=== PATIENT | male | born 1960 | race Caucasian/White ===

== ENCOUNTER 2016-05-21 22:09 | Emergency (ER) | payer MEDICAID ==
[2016-05-21 22:20] VITALS: TEMP 97.6
[2016-05-21] MEDS ORDERED: diphenhydrAMINE 50 MG/ML 1 ML VIAL IVP STA (23:16)
[2016-05-21] MEDS ORDERED: predniSONE 20 MG TAB PO STA (23:17)
[2016-05-21] MEDS ORDERED: FAMOTIDINE 20 MG/2 ML VIAL IV STA (23:17)
[2016-05-21 23:19] LABS: Basophils % (A) 0 %; CH 32.2; Eosinophils # (A) 0.2 k/uL (0-0.7); Eosinophils % (A) 3 %; HDW 2.68; HGB 15.9 gm/dL (13.0-17.5); Luc # (Auto) 0.17; Luc % (Auto) 2; Lymphocytes # (A) 2.4 k/uL (1.0-4.8); Lymphocytes % (A) 31 %; MCHC 34.6 g/dL (31.0-37.0); MCV 92.3 fL (80.0-100.0); Mean Platelet Volume 6.5; Monocytes # (A) 0.4 k/uL (0-1.0); Monocytes % (A) 5 %; Neutrophils # (A) 4.7 k/uL (1.3-7.7); Neutrophils % (A) 59 %; RBC 4.98 m/uL (4.30-5.90); RDW 12.9 % (11.5-15.5); WBC 7.9 k/uL (3.8-10.6); WBC (Perox) 7.73
--- NOTE | 2016-05-21 23:26 | ED ---
Chest Pain HPI - General Chief Complaint: Chest Pain Stated Complaint: chest pains and Hives Time Seen by Provider: 05/21/16 22:36 Source: patient, family Mode of arrival: wheelchair Limitations: no limitations - History of Present Illness Initial Comments: This patient is a 55-year-old man who presents with what he is complaining as chest pain. He indicates the epigastric area and states that it feels most like a cramping and that it goes down towards his umbilicus, and then seems to come back up. He states that he started experiencing this on Sunday and that is worse today. He told his about it tonight she had him come here to be seen. In addition, patient is having some swelling of his lips and tongue tonight. He does have history of environmental ALLERGIES and they did recently acquired cat but he does not believe is related. Patient denies diaphoresis, dyspnea, nausea and vomiting, palpitations or lightheadedness. MD Complaint: chest pain -: days(s) Onset: during rest Pain Location: epigastric Pain Radiation: abdomen Severity: moderate Quality: other (Cramping) Consistency: intermittent Improves With: nothing Worsens With: nothing Treatments Prior to Arrival: none - Related Data Previous Rx's Medication Instructions Recorded predniSONE 60 mg PO DAILY #30 tab 05/22/16 Allergies Allergy/AdvReac Type Severity Reaction Status Date / Time No Known Allergies Allergy Verified 05/21/16 22:19 Review of Systems ROS Statement: Those systems with pertinent positive or pertinent negative responses have been documented in the HPI. ROS Other: All systems not noted in ROS Statement are negative. Constitutional: Denies: fever, chills ENT: Reports: as per HPI, other (Swelling of lips and tongue) Respiratory: Denies: cough, dyspnea Cardiovascular: Reports: chest pain. Denies: palpitations, orthopnea, edema, syncope Gastrointestinal: Denies: abdominal pain, nausea, vomiting, diarrhea, melena, hematochezia Genitourinary: Denies: dysuria, hematuria Musculoskeletal: Denies: back pain Skin: Denies: rash Neurological: Denies: headache, weakness, numbness EKG Findings - EKG Comments: EKG Findings:: QRS duration is 120 ms with a nonspecific intraventricular conduction delay. Other intervals normal - EKG Results: EKG: interpreted by OLU, sinus rhythm (Rate 72 bpm), normal axis, normal ST/T Past Medical History Additional Past Medical History / Comment(s): insomnia History of Any Multi-Drug Resistant Organisms: None Reported Past Surgical History: Orthopedic Surgery Past Psychological History: Anxiety Smoking Status: Never smoker Past Alcohol Use History: None Reported Past Drug Use History: None Reported General Exam Limitations: no limitations General appearance: alert, in no apparent distress Head exam: Present: atraumatic, normocephalic ENT exam: Present: mucous membranes moist, other (There is symmetric angioedema of the tongue, moderate degree, and mild symmetric angioedema of the lips) Neck exam: Present: normal inspection, full ROM Respiratory exam: Present: normal lung sounds bilaterally. Absent: respiratory distress, wheezes, rales, rhonchi, stridor Cardiovascular Exam: Present: regular rate, normal rhythm, systolic murmur ( Grade 2/6 systolic ejection murmur). Absent: diastolic murmur, rubs, gallop GI/Abdominal exam: Present: soft. Absent: distended, tenderness, guarding, rebound, rigid, mass, pulsatile mass, hernia Extremities exam: Present: normal inspection, normal capillary refill. Absent: pedal edema, calf tenderness Back exam: Present: normal inspection. Absent: CVA tenderness (R), CVA tenderness (L) Neurological exam: Present: alert Skin exam: Present: warm, dry, intact, normal color. Absent: rash Course Vital Signs 05/21/16 05/21/16 05/22/16 22:13 22:44 01:10 Temperature 97.6 F Pulse Rate 75 72 70 Respiratory 18 18 16 Rate Blood Pressure 139/83 143/88 125/73 O2 Sat by Pulse 97 96 97 Oximetry Chest Pain MDM - MDM This patient's 55-year-old man presenting with epigastric pain that is atypical for cardiac pain, however given his age and no previous cardiac workup, did offer admission. The patient does decline that but will follow-up to have a stress test. Discussed appropriate return parameters, In relation to the angioedema, the patient has had some relief of the symptoms. We discussed appropriate follow-up and return parameters there. There may be a history of hereditary component and patient urged to follow up regarding this. Disposition Clinical Impression: Chest pain, Angioedema Disposition: HOME SELF-CARE Condition: Good Instructions: Chest Pain (ED) Additional Instructions: As we discussed, follow-up with the radar scientist about having a stress test. If the symptoms recur or if any new symptoms develop return immediately, we can facilitate the stress test through admission. Prescriptions: predniSONE 60 mg PO DAILY #30 tab Referrals: Virgilio Baltazar MD [Primary Care Provider] - 1-2 days
[2016-05-21 23:27] LABS: ALT 32 U/L (21-72); AST 26 U/L (17-59); Alkaline Phosphatase 83 U/L (38-126); Anion Gap 13 mmol/L; Blood Urea Nitrogen 10 mg/dL (9-20); Calcium 9.1 mg/dL (8.4-10.2); Carbon Dioxide 25 mmol/L (22-30); Chloride 102 mmol/L (98-107); Glucose 97 mg/dL (74-99); Non-African American GFR(MDRD) >60 (>60 ml/min/1.73 sqM); Potassium 3.6 mmol/L (3.5-5.1); Sodium 140 mmol/L (137-145); Total Bilirubin 0.5 mg/dL (0.2-1.3); Total Protein 7.2 g/dL (6.3-8.2)
[2016-05-21 23:36] LABS: Creatine Kinase 138 U/L (55-170)
[2016-05-21 23:44] LABS: Magnesium 2.2 mg/dL (1.6-2.3)
--- NOTE | 2016-05-21 23:48 | XR ---
EXAM: XR Chest, 1 View. CLINICAL HISTORY: Reason: chest pain TECHNIQUE: Frontal view of the chest. COMPARISON: No relevant prior studies available. FINDINGS: Lungs: Unremarkable. No consolidation. Pleural space: Unremarkable. No pneumothorax. Heart: Unremarkable. No cardiomegaly. Mediastinum: Unremarkable. Bones/joints: No acute osseous abnormality. IMPRESSION: No acute cardiopulmonary process.
[2016-05-21 23:49] LABS: Creatine Kinase MB 1.5 ng/mL (0.0-2.4); Troponin I <0.012 ng/mL (0.000-0.034)
[2016-05-22 01:11] VITALS: BP 125/73; PULSE 70; RESP 16
== END 2016-05-22 01:10 | disposition home or self-care (01) ==
LOC: EC 22:09
DX: T78.3XXA Angioneurotic edema, initial encounter (principal); R07.89 Other chest pain
CPT/HCPCS: 99285; 96374; 96375; 36415; 93005; 80053; 82150; 82550; 82553; 83690; 83735; 84484; 85025; 71010; J1200; J7512

== ENCOUNTER → 2016-06-13 | Outpatient (CLI) | payer MEDICAID ==
[2016-06-13 10:16] LABS: EKG EKG PERFORMED
[2016-06-13 10:24] LABS: HCT 46.2 % (39.0-53.0); HDW 2.67; HGB 15.4 gm/dL (13.0-17.5); MCH 31.5 pg (25.0-35.0); MCHC 33.3 g/dL (31.0-37.0); MCV 94.7 fL (80.0-100.0); Mean Platelet Volume 6.3; RBC 4.88 m/uL (4.30-5.90); RDW 13.1 % (11.5-15.5); WBC 4.8 k/uL (3.8-10.6)
[2016-06-13 10:36] LABS: Prothrombin Time 10.2 sec (9.0-12.0)
[2016-06-13 10:40] LABS: ALT 27 U/L (21-72); AST 22 U/L (17-59); Alkaline Phosphatase 90 U/L (38-126); Blood Urea Nitrogen 7 mg/dL (9-20); Calcium 9.4 mg/dL (8.4-10.2); Carbon Dioxide 30 mmol/L (22-30); Chloride 103 mmol/L (98-107); Glucose 150 mg/dL (74-99); Non-African American GFR(MDRD) >60 (>60 ml/min/1.73 sqM); Potassium 4.1 mmol/L (3.5-5.1); Total Bilirubin 0.7 mg/dL (0.2-1.3); Total Protein 7.8 g/dL (6.3-8.2)
[2016-06-13 10:54] LABS: Appearance,Urine Cloudy (Clear); Bilirubin,Urine Negative (Negative); Glucose,Urine (UA) Negative (Negative); Ketones,Urine Negative (Negative); Leukocyte Esterase,Urine Negative (Negative); Mucus,Urine Rare /hpf; Nitrite,Urine Negative (Negative); PH, Urine 5.5 (5.0-8.0); Particle Count 821; Protein,Urine Negative (Negative); Specific Gravity,Urine 1.005 (1.001-1.035); UA Billing (MACRO vs. MICRO) MICRO; Urobilinogen,Urine <2.0 mg/dL (<2.0); WBC,Urine 3 /hpf (0-5)
[2016-06-13 10:55] LABS: Anion Gap 11 mmol/L; Sodium 144 mmol/L (137-145)
== END | disposition home or self-care (01) ==
LOC: LABPAT 10:05
PROVIDERS: ATTEND Orthopaedic Surgery Sports Medicine
DX: Z01.812 Encounter for preprocedural laboratory examination (principal)
CPT/HCPCS: 80053; 81001; 85027; 85610; 85730; 87070; 93005

== ENCOUNTER → 2016-06-16 | Outpatient (CLI) | payer MEDICAID ==
--- NOTE | 2016-06-16 17:36 | CT ---
EXAMINATION TYPE: CT angio chest DATE OF EXAM: 06/16/2016 5:24 PM COMPARISON: NONE HISTORY: Pre surgical scan. Chest pain. History of heart murmur. Son of hypertrophic cardiomyopa thy. CT DLP: 628.20 mGycm Automated exposure control for dose reduction was used. CONTRAST: CTA scan of the thorax is performed without and with IV Contrast, patient injected with 100 mL of Omn ipaque 350, pulmonary embolism protocol. There are 3-D post processed images.. FINDINGS: The lungs are clear of infiltrate. There is no evidence of a pulmonary mass. There is mild subsegment al atelectasis or scarring in the right middle lobe. There is no pleural effusion. There is normal contrast opacification of the pulmonary arteries. There are no filling defects. There is no evidence of aortic aneurysm or dissection. Heart size is normal. There is no pericardial effus ion. There are no hilar masses. There is no mediastinal adenopathy. The bony thorax is intact. There are old mild compression fractures of T4 and T3 with less than 10% loss of height. IMPRESSION: NO EVIDENCE OF PULMONARY EMBOLISM. OLD MINIMAL THORACIC COMPRESSION FRACTURES. MINIMAL RIGHT MIDDLE L OBE SCARRING AND SUBSEGMENTAL ATELECTASIS.
== END | disposition home or self-care (01) ==
LOC: RADCTMAIN 16:40
PROVIDERS: ATTEND Internal Medicine Interventional Cardiology
DX: J98.11 Atelectasis (principal); R91.8 Other nonspecific abnormal finding of lung field; Z87.81 Personal history of (healed) traumatic fracture
CPT/HCPCS: 71275; Q9967

== ENCOUNTER → 2016-06-23 | Outpatient (CLI) | payer MEDICAID ==
[~2016-06-23] MED LIST: REGADENOSON 0.4 MG/5 ML SYRINGE IV ONE
--- NOTE | 2016-06-23 10:23 | ECHOF ---
Referral Reason:I35.8 Aortic valve disorder MEASUREMENTS -------- HEIGHT: 177.8 cm WEIGHT: 72.6 kg BP: 127/77 RVIDd: 3.2 cm (< 3.3) IVSd: 0.9 cm (0.6 - 1.1) LVIDd: 5.3 cm (3.9 - 5.3) LVPWd: 0.9 cm (0.6 - 1.1) IVSs: 1.8 cm LVIDs: 3.3 cm LVPWs: 1.5 cm LAESV Index (A-L): 13.68 ml/m Ao Diam: 3.9 cm (2.0 - 3.7) AV Cusp: 1.6 cm (1.5 - 2.6) LA Diam: 2.7 cm (2.7 - 3.8) MV EXCURSION: 15.618 mm (> 18.000) MV EF SLOPE: 131 mm/s (70 - 150) EPSS: 1.0 cm MV E Rodney: 0.66 m/s MV DecT: 329 ms MV A Rodney: 0.71 m/s MV E/A Ratio: 0.93 AR PHT: 584 ms FINDINGS -------- Sinus rhythm. This was a technically adequate study. Left ventricular wall thickness is normal. Overall left ventricular systolic function is normal with, an EF between 60 - 65 %. The right ventricle is normal in size and function. Normal LA size by volume 22+/-6 ml/m2. The right atrium is normal in size. Aortic valve is trileaflet and is mildly thickened. There is mild aortic regurgitation. There is no evidence of aortic stenosis. The mitral valve leaflets are mildly thickened. There is trace to mild mitral regurgitation. Trace tricuspid regurgitation present. There is no evidence of pulmonary hypertension. The right ventricular systolic pressure, as measured by Doppler, is {RVSP}. Trace/mild (physiologic) pulmonic regurgitation. The aortic root is mildy dilated. There is no pericardial effusion. CONCLUSIONS -------- 1. Sinus rhythm. 2. The right ventricular systolic pressure, as measured by Doppler, is {RVSP}. 3. Trace/mild (physiologic) pulmonic regurgitation. 4. The aortic root is mildy dilated. 5. There is no pericardial effusion. 6. Overall left ventricular systolic function is normal with, an EF between 60 - 65 %. 7. Normal LA size by volume 22+/-6 ml/m2. 8. Aortic valve is trileaflet and is mildly thickened. 9. There is mild aortic regurgitation. 10. The mitral valve leaflets are mildly thickened. 11. There is trace to mild mitral regurgitation. 12. Trace tricuspid regurgitation present. 13. There is no evidence of pulmonary hypertension. PHYSICIAN OFFICE ASSISTANT: Rod Thomas RDCS
--- NOTE | 2016-06-23 11:10 | EST ---
DATE OF SERVICE: 06/23/2016 AGE: 55Y SEX: M HT: 70" WT: 160 lbs. Protocol Isaías: Other: Lexiscan Cardiolite Stage: Dur. of Exercise: *Heart Rate Blood Pressure *Rest: 64 Rest: 120/70 * *Max. Achieved: 87 Maximum BP: 128/84 85% PMHR: 139 100% PMHR: 163 *METS: INDICATIONS: Aortic valve disorder. MEDICATIONS: Fish oil, baby aspirin, multivitamin. Mr. Chaudhry is a 55-year-old gentleman being evaluated for cardiac status. Patient is a scheduled to have a knee operation and also has history of aortic valve disorder. Baseline EKG showed sinus rhythm with normal ME interval and QRS duration. Blood pressure at rest is 120/70 with a pulse rate of 64. A standard dose of Lexiscan was infused. EKGs taken during and after infusion did not reveal any significant changes from the baseline. FINAL IMPRESSION: 1. Negative Lexiscan stress test. 2. Report on the nuclear images to be given by the radiologist.
--- NOTE | 2016-06-23 12:33 | NM ---
EXAMINATION TYPE: NM stress lexiscan cardiolite DATE OF EXAM: 06/23/2016 12:01 PM COMPARISON: NONE HISTORY: Chest pain TECHNIQUE: After the intravenous administration of 9.67 mCi Tc 99m Sestamibi - Cardiolite resting SP ECT images acquired 45 minutes post injection. The patient received 0.4mg Lexiscan, 25.5 mCi Tc 99m Sestamibi - Stress images obtained [address] injection FINDINGS: Review of stress and rest SPECT images demonstrates no distinct perfusion abnormality. Gated analysi s shows normal wall motion with an estimated left ventricular ejection fraction of 50 %. IMPRESSION: No scintigraphic evidence for reversible ischemia.
== END ==
LOC: RADNMMAIN 08:52
PROVIDERS: ATTEND Internal Medicine Interventional Cardiology
DX: I35.8 Other nonrheumatic aortic valve disorders (principal)
CPT/HCPCS: 93017; 93306; 78452; A9500; J2785

== ENCOUNTER → 2016-08-28 | Outpatient (CLI) | payer MEDICAID ==
[2016-08-28 11:20] LABS: CH 31.5; CHCM 33.7; HCT 43.5 % (39.0-53.0); HDW 2.67; HGB 14.5 gm/dL (13.0-17.5); MCH 31.4 pg (25.0-35.0); MCHC 33.3 g/dL (31.0-37.0); MCV 94.1 fL (80.0-100.0); RBC 4.62 m/uL (4.30-5.90); RDW 13.8 % (11.5-15.5); WBC 5.5 k/uL (3.8-10.6)
[2016-08-28 11:27] LABS: Appearance,Urine Clear (Clear); Bilirubin,Urine Negative (Negative); Glucose,Urine (UA) Negative (Negative); Ketones,Urine Negative (Negative); Leukocyte Esterase,Urine Negative (Negative); Nitrite,Urine Negative (Negative); PH, Urine 6.5 (5.0-8.0); Protein,Urine Negative (Negative); Specific Gravity,Urine 1.002 (1.001-1.035); UA Billing (MACRO vs. MICRO) CHEM; Urobilinogen,Urine <2.0 mg/dL (<2.0)
[2016-08-28 11:32] LABS: Partial Thromboplastin Time 25.1 sec (22.0-30.0)
[2016-08-28 11:40] LABS: ALT 40 U/L (21-72); AST 31 U/L (17-59); Alkaline Phosphatase 89 U/L (38-126); Anion Gap 9 mmol/L; Blood Urea Nitrogen 4 mg/dL (9-20); Calcium 9.2 mg/dL (8.4-10.2); Carbon Dioxide 31 mmol/L (22-30); Chloride 103 mmol/L (98-107); Glucose 89 mg/dL (74-99); Non-African American GFR(MDRD) >60 (>60 ml/min/1.73 sqM); Potassium 3.9 mmol/L (3.5-5.1); Sodium 143 mmol/L (137-145); Total Bilirubin 0.4 mg/dL (0.2-1.3); Total Protein 7.3 g/dL (6.3-8.2)
== END | disposition home or self-care (01) ==
LOC: LABPAT 10:54
PROVIDERS: ATTEND Orthopaedic Surgery Sports Medicine
DX: Z01.810 Encounter for preprocedural cardiovascular examination (principal); Z01.812 Encounter for preprocedural laboratory examination; M17.11 Unilateral primary osteoarthritis, right knee
CPT/HCPCS: 80053; 81003; 85027; 85610; 85730; 87070

== ENCOUNTER 2016-09-07 10:14 | Inpatient (IN) | payer MEDICAID ==
[2016-08-30 14:51] VITALS: BMI 22.9
[~2016-09-07 10:14] MED LIST changes: +ACETAMINOPHEN TAB 500 MG TAB PO ONE; +DEXAMETHASONE SOD PHOSPHATE 10 MG/ML 1 ML VIAL IV ONE; +HYDROmorphone 1 MG/ML 1 ML SYRINGE IVP PRN; +LACTATED RINGERS 1,000 ML IV SCH; +LIDOCAINE 1% 20 ML VIAL (10MG/ML) FOR IV START INTRADERMA PRN; +MELOXICAM 7.5 MG TAB PO ONE; +MIDAZOLAM 2 MG/2 ML VIAL IV PRN; +ONDANSETRON 4 MG/2 ML VIAL IVP ONE; -REGADENOSON 0.4 MG/5 ML SYRINGE IV ONE; +ROPIVACAINE 246.25 MG, EPINEPHrine 0.5 MG, KETOROLAC 30 MG, cloNIDine HCL/PF 80 MCG, WA... MISCELLANE ONE; +SCOPOLAMINE 1.5MG/72HR PATCH TRANSDERM ONE; +TRANEXAMIC ACID 1,000 MG in SODIUM CHLORIDE 0.9% 100 ML IVPB ONE; +ceFAZolin 2 GM in SODIUM CHLORIDE 0.9% 100 ML IVPB ONE
[2016-09-07] MEDS ORDERED: MIDAZOLAM 2 MG/2 ML VIAL ONE (11:45)
[2016-09-07] MEDS ORDERED: ceFAZolin 3,000 MG in SODIUM CHLORIDE 0.9% IRRIGATIO 3,000 ML IRRIGATION ONE (11:45)
[2016-09-07] MEDS ORDERED: PROPOFOL 10 MG/ML 20 ML VIAL IV ONE (11:45)
[2016-09-07] MEDS ORDERED: fentaNYL (PF) 50 MCG/ML 2 ML AMP ONE (11:45)
[2016-09-07] MEDS ORDERED: MORPHINE SULFATE (PF) 0.3 MG/0.3 ML SYR ONE (11:45)
[2016-09-07] MEDS ORDERED: LACTATED RINGERS 1,000 ML IV ONE (12:25)
[2016-09-07] MEDS ORDERED: DIAZEPAM 5 MG TAB PO PRN (14:15)
[2016-09-07] MEDS ORDERED: NALOXONE 0.4 MG/ML 1 ML VIAL IV PRN (14:15)
[2016-09-07] MEDS ORDERED: ONDANSETRON 4 MG/2 ML VIAL IVP PRN ×2 (14:15→15:15)
[2016-09-07] MEDS ORDERED: traMADol 50 MG TAB PO PRN (14:15)
[2016-09-07] MEDS ORDERED: MAGNESIUM HYDROXIDE 2,400 MG/10 ML CUP PO PRN (14:15)
[2016-09-07] MEDS ORDERED: NA PHOS,M-B/NA PHOS,DI-BA 133 ML ENEMA RECTAL PRN (14:15)
[2016-09-07] MEDS ORDERED: ACETAMINOPHEN TAB 325 MG TAB PO PRN (14:15)
[2016-09-07] MEDS ORDERED: BISACODYL 10 MG SUPP RECTAL PRN (14:15)
[2016-09-07] MEDS ORDERED: hydrOXYzine PAMOATE 25 MG CAP PO PRN (14:15)
[2016-09-07] MEDS ORDERED: HYDROmorphone 1 MG/ML 1 ML SYRINGE IVP PRN ×3 (14:15)
[2016-09-07] MEDS ORDERED: HYDROcodone/APAP 7.5-325MG 1 EACH TAB PO PRN (14:15)
[2016-09-07] MEDS ORDERED: TEMAZEPAM 15 MG CAP PO PRN (14:15)
[2016-09-07 14:29] VITALS: RESP 16
--- NOTE | 2016-09-07 14:51 | XR ---
Right knee HISTORY: Status post right knee arthroplasty 2 views of the right knee, no comparisons Patient is status post right knee arthroplasty. Metallic dorys are also present within the proximal tibia. Alignment is maintained. There is overlying artifact. Lucency in the soft tissues compatible postop state. Patient is status post anterior cruciate ligament repair. IMPRESSION: Orthopedic follow-up.
[2016-09-07] MEDS ORDERED: diphenhydrAMINE 50 MG/ML 1 ML VIAL IVP PRN (15:15)
[2016-09-07] MEDS: ceFAZolin 2 GM in SODIUM CHLORIDE 0.9% 100 ML IVPB SCH (18:03)
[2016-09-07] MEDS ORDERED: MIRTAZAPINE 45 MG TABLET PO SCH (21:00)
[2016-09-07] MEDS ORDERED: SENNOSIDES-DOCUSATE SODIUM 1 EACH TAB PO SCH (21:00)
[2016-09-07] MEDS ORDERED: GABAPENTIN 300 MG CAP PO SCH (21:00)
[2016-09-07] MEDS: ALPRAZolam 0.5 MG TAB PO SCH (22:15)
[2016-09-07] MEDS: ASPIRIN 325 MG TAB PO SCH (22:16)
[2016-09-07] MEDS: LACTATED RINGERS 1,000 ML IV SCH ×2 (23:43→23:45)
[2016-09-08] MEDS: ceFAZolin 2 GM in SODIUM CHLORIDE 0.9% 100 ML IVPB SCH (00:46)
[2016-09-08] MEDS: ALPRAZolam 0.5 MG TAB PO SCH ×5 (01:02→15:55)
[2016-09-08] MEDS: LACTATED RINGERS 1,000 ML IV SCH (05:13)
[2016-09-08] MEDS: HYDROcodone/APAP 7.5-325MG 1 EACH TAB PO PRN ×2 (07:58→13:36)
[2016-09-08] MEDS: ASPIRIN 325 MG TAB PO SCH (07:58)
[2016-09-08] MEDS: GABAPENTIN 300 MG CAP PO SCH ×2 (07:59→15:56)
[2016-09-08] MEDS ORDERED: ONDANSETRON 4 MG/2 ML VIAL IVP ONE (08:00)
[2016-09-08 08:06] LABS: Basophils % (A) 0 %; CH 31.7; CHCM 33.1; Eosinophils # (A) 0.1 k/uL (0-0.7); Eosinophils % (A) 1 %; HCT 34.6 % (39.0-53.0); Luc # (Auto) 0.18; Luc % (Auto) 2; Lymphocytes # (A) 1.3 k/uL (1.0-4.8); Lymphocytes % (A) 15 %; MCH 31.2 pg (25.0-35.0); MCHC 32.5 g/dL (31.0-37.0); MCV 96.2 fL (80.0-100.0); Mean Platelet Volume 7.2; Monocytes # (A) 0.7 k/uL (0-1.0); Monocytes % (A) 8 %; Neutrophils # (A) 6.5 k/uL (1.3-7.7); Neutrophils % (A) 75 %; RBC 3.59 m/uL (4.30-5.90); RDW 13.6 % (11.5-15.5); WBC 8.7 k/uL (3.8-10.6); WBC (Perox) 9.51
[2016-09-08 08:12] LABS: HGB 11.2 gm/dL (13.0-17.5)
[2016-09-08] MEDS ORDERED: NON-FORMULARY DRUG (Multivit-Min/Fa/Lycopen/Lutein [Centrum Silver Men Tablet] 1 TAB) PO SCH (09:00)
--- NOTE | 2016-09-08 09:34 | P.DS ---
Providers Date of admission: 09/07/16 10:14 Expected date of discharge: 09/08/16 Attending physician: Miguel Angel Ceron Consults: 09/07/16 14:15 Consult Physician Routine Consulting Provider: Lion Jones Consult Reason/Comments: post op medical management Do you want consulting provider notified?: Yes Primary care physician: Virgilio Baltazar - Discharge Diagnosis(es) (1) Osteoarthritis Patient was admitted to the OR on 09/07/2016 to undergo right total knee arthroplasty, removal of hardware. He had failed conservative measures as an outpatient and desired to proceed with elective surgery after given informed consent. He underwent the above procedure which he tolerated well without complication. Postoperative hospital course has remained without complication. On day of discharge he is afebrile, vital signs stable, labs within acceptable ranges, tolerating by mouth meds and diet, voiding without difficulty , positive flatus, denies abdominal pain or calf pain, pain controlled on oral pain medication and has no new complaints. Wound is benign, neurovascular status is intact, calf is soft and nontender, abdomen soft and nontender. Review of systems is negative for numbness, tingling, fever, chills, chest pain , shortness breath, nausea, vomiting, dizziness, headaches, slurred speech or other. Current Visit: Yes Status: Acute Priority: Medium Procedures: Right total knee arthroplasty Patient Condition at Discharge: Good Plan - Discharge Summary New Discharge Prescriptions: New Aspirin 325 mg PO BID #60 tab Docusate [Colace] 100 mg PO BID #60 capsule HYDROcodone/APAP 7.5-325MG [[place] 7.5-325] 1 - 2 each PO Q6HR PRN #90 tab PRN Reason: Pain No Action Mirtazapine [Remeron] 45 mg PO HS Gabapentin [Neurontin] 300 mg PO BID Gabapentin [Neurontin] 900 mg PO HS ALPRAZolam [ALPRAZolam] 1 mg PO Q3-4H [place]-3 Fatty Acids/Fish Oil [Fish Oil 1,000 mg Softgel] 1 cap PO DAILY Multivit-Min/FA/Lycopen/Lutein [Centrum Silver Men Tablet] 1 tab PO DAILY Aspirin [Adult Low Dose Aspirin EC] 81 mg PO DAILY Discharge Medication List ALPRAZolam [ALPRAZolam] 1 mg PO Q3-4H 06/20/16 [History] Gabapentin [Neurontin] 300 mg PO BID 06/20/16 [History] Gabapentin [Neurontin] 900 mg PO HS 06/20/16 [History] Mirtazapine [Remeron] 45 mg PO HS 06/20/16 [History] Aspirin [Adult Low Dose Aspirin EC] 81 mg PO DAILY 08/30/16 [History] Multivit-Min/FA/Lycopen/Lutein [Centrum Silver Men Tablet] 1 tab PO DAILY [History] [place]-3 Fatty Acids/Fish Oil [Fish Oil 1,000 mg Softgel] 1 cap PO DAILY [History] Aspirin 325 mg PO BID #60 tab 09/08/16 [Rx] Docusate [Colace] 100 mg PO BID #60 capsule 09/08/16 [Rx] HYDROcodone/APAP 7.5-325MG [[place] 7.5-325] 1 - 2 each PO Q6HR PRN #90 tab [Rx] Follow up Appointment(s)/Referral(s): Miguel Angel Ceron MD [STAFF PHYSICIAN] - 10 Days Activity/Diet/Wound Care/Special Instructions: Take meds as directed Follow up with Dr. Ceron in office Weight-bear as tolerated Keep wound clean and dry May shower in 72 hours Discharge Disposition: HOME WITH HOME HEALTH SERVICES
--- NOTE | 2016-09-08 11:34 | P.PN ---
Progress Note - Text Postop day 1 from total knee replacement under spinal anesthesia with intrathecal morphine given for postop pain management. Patient is doing well. Pain is well controlled. On visual analog scale Mild itching present No nausea or vomiting reported. No Headache or weakness and numbness in the legs. No complications from spinal anesthesia.
[2016-09-08] MEDS ORDERED: MULTIVITAMINS, THERA 1 EACH TAB PO SCH (12:00)
--- NOTE | 2016-09-08 12:17 | CONS ---
DATE OF CONSULTATION: 09/07/16 REASON FOR CONSULTATION: Medical management requested by Dr. Baltazar. CONSULTATION: This is a 56 -year-old patient of Dr. Baltazar whose chronic stable medical conditions include: insomnia, anxiety, underwent a right total knee arthroplasty. Post procedure, pain is controlled. No nausea or vomiting. No chest pain or shortness of breath. The patient doing well. Did tolerate some meal. REVIEW OF SYSTEMS: Constitutional: None. HEENT: None. Respiratory: None. Cardiovascular: None. Gastrointestinal: None. : None. Musculoskeletal: Pain in the left hand fingers. Dermatological: As above. Lymphatics: None. Psychiatry: Some anxiety. Neurological: does not sleep well. Past history of insomnia, anxiety. Past surgical history: Torn right ACL and MCL times three. Left partial tendon rotator cuff, sinus surgery, left foot surgery, skin graft left foot. Social history: Does not smoke. No alcohol. . Owns a [employer]. FAMILY HISTORY: Prostate cancer. Home medications: 1. Fish oil one capsule daily. 2. Centrum silver one tablet po daily. 3. Remeron 45 mg po q.h.s. 4. Neurontin 900 mg q.h.s. and 300 mg po b.i.d. 5. Aspirin 81 mg po daily. 6. Xanax 1 mg q3-4 prn. ALLERGIES: None. On examination, temperature 97.6, pulse 78, respiratory rate 16, blood pressure 114/69. Pulse ox 98% on room air. General appearance: Average built. Sitting up comfortable. EYES: Pupils equal. Conjunctivae normal. HEENT: Oral cavity normal. Neck: JVD not raised. Mass not palpable. Respiratory effort: Normal. Lungs fair entry. Cardiovascular: First and second sounds normal. No edema. Abdomen soft, nontender. Liver and spleen not palpable. Lymphatics : No lymph nodes palpable in the neck and axillae. Psychiatry: Alert and oriented times three. Mood and affect normal. Neurological: Pupils equal. Cranial nerves grossly intact. Extremities: Right knee in a dressing. INVESTIGATIONS: Blood work from 08/29/16 revealed white count 5.5, hemoglobin 14.5, potassium 3.9. ASSESSMENT: 1. Right total knee arthroplasty. 2. Chronic insomnia idiopathic. 3. Anxiety, not otherwise specified. PLAN: The patients home medications can be resumed. The patient is on aspirin 325 twice a day for deep venous thrombosis prophylaxis. Venodyne boot in place. Care was discussed with the patient. The patient should follow with Dr. Baltazar on discharge. Thank you Dr. Ceron. KAHLIL
[2016-09-08] MEDS ORDERED: TAMSULOSIN 0.4 MG CAP.ER.24H PO STA (14:26)
[2016-09-08 15:00] VITALS: BP 144/81; PULSE 68; TEMP 97.2
[2016-09-08] MEDS ORDERED: ONDANSETRON 4 MG/2 ML VIAL IVP PRN (15:17)
--- NOTE | 2016-09-09 07:29 | PN ---
DATE OF SERVICE: 09/08/2016 PRESENTING COMPLAINT: Knee surgery. INTERVAL HISTORY: Patient is status post knee surgery, doing well. Pain is controlled. Tolerating his diet. Patient is having trouble with urine retention. Earlier was catheterized and about 1300 mL were removed. Patient had the same problem earlier. Patient just complaining of straining with urine at baseline. Review of systems done for constitutional, cardiovascular, GI, pulmonary, musculoskeletal, genitourinary; relevant findings as above. Current medications reviewed. On examination, temperature 97.2, pulse 68, respirations 16, blood pressure 144/ 81, pulse ox 92% on room air. GENERAL APPEARANCE: Sitting up, comfortable. EYES: Pupils equal, conjunctivae normal. NECK: JVD not raised, mass not palpable. RESPIRATORY EFFORT: Lungs are clear. CARDIOVASCULAR: First and second sounds, no edema. ABDOMEN: Soft, nontender. PSYCHIATRY: Alert and oriented x3. Mood and affect normal. INVESTIGATIONS: Hemoglobin 11.2. ASSESSMENT: 1. Right total knee arthroplasty. 2. Chronic insomnia, idiopathic. 3. Anxiety, not otherwise specified. 4. Acute postoperative urinary retention likely from pain medications. Suspect underlying benign prostatic hypertrophy. 5. Probable benign prostatic hypertrophy. 6. Acute postoperative blood loss anemia as expected from surgery. PLAN: Will start the patient on Flomax and do straight catheterization. Care was discussed with the patient and in detail. Questions were answered. Thank you, Dr. Ceron. KAHLIL
--- NOTE | 2016-09-13 08:48 | OP ---
DATE OF PROCEDURE: 09/07/2016 PREOPERATIVE DIAGNOSES: 1. Right knee osteoarthrosis. 2. Right knee retained hardware from prior anterior cruciate ligament reconstruction. POSTOPERATIVE DIAGNOSES: 1. Right knee osteoarthrosis. 2. Right knee retained hardware from prior anterior cruciate ligament reconstruction. PROCEDURE PERFORMED: 1. Right total knee arthroplasty. 2. Right knee deep hardware removal. SURGEON: HILARY FALCON MD CEMENT CRUSHER OPERATOR: MARIA R TREVIÑO, REGI ANESTHESIA: Spinal with sedation. ESTIMATED BLOOD LOSS: 100 mL. TOURNIQUET: 60 minutes at 250 mmHg. DRAINS: None. COMPLICATIONS: None apparent. DISPOSITION: Postanesthesia care unit. INDICATIONS: Fleipe is a very pleasant 56 -year-old male with long standing history of right knee pain. He has undergone multiple operations in the past on the right knee including anterior cruciate ligament reconstruction. History and physical examination are consistent advanced right knee osteoarthrosis. He has been through significant nonoperative management at this point. Further treatment options were discussed and he has decided to go forward with right total knee arthroplasty. The risks were discussed with him in detail. These risks include but are not limited to risk of infection, nerve damage, bleeding, pain, small risk of deep vein thrombosis which could lead to fatal pulmonary embolism. There is also risk of loosening of the implant which could require revision operation. Also discussed with Felipe that I may need to remove some of the retained hardware from the anterior cruciate ligament reconstruction over to successfully perform the total knee arthroplasty. He understands these risks and all his questions were answered to his satisfaction. Appropriate informed consent was obtained. DESCRIPTION OF THE PROCEDURE: The patient was identified in the preoperative holding area. Surgical site was marked by both the patient and myself. He was given 2 gm Ancef IV for prophylactic purposes. He was then transferred to the operative suite and placed supine on the operating room table. Spinal anesthetic was then administered and dosed per the anesthesia department without apparent complications. Examination under anesthesia was then performed. The patient was 2 to 3 degrees shy of full extension. He had 100 degrees of flexion in the medial collateral ligament, lateral collateral ligament and posterior cruciate ligaments were stable. The tourniquet was placed high on the right upper thigh, well padded in preparation for surgery. The patients right lower extremity was then prepped and draped in the usual sterile fashion. Standard surgical pause was then undertaken to ensure that we were operating in the correct site and that appropriate preoperative antibiotics had been given. All staff in the room were in agreement and we proceeded. The outlines of the patellar were marked with surgical pen. The previous incisions were also marked with a surgical pen. I planned a 12 cm incision, vertical incision centered over the patella with marked surgical pen. This included a portion of the previous incision which had been well healed. The leg was then exsanguinated with an Esmarch dressing. The knee was then flexed and tourniquet inflated to 250 mmHg. Total tourniquet time for the procedure was 60 minutes at 250 mmHg. Incision was then made with a 10 blade scalpel. Dissection was carried down sharply to the overlying fascia. Great care was taken to minimize the skin flaps. The knee was then exposed using standard medial parapatellar approach. A small cuff of quadriceps tendon was left for suturing. He was in a bit of varus preoperatively. Standard medial release was made. The superficial medial collateral ligament was dissected off bone, around the posterior aspect of the proximal tibial. The medial meniscus was also excised as well. The lateral meniscus was also released anteriorly. The leg was then externally rotated. The patellar was everted and the knee was flexed. The retractors were then placed to protect the collateral ligaments. I then proceeded to remove the infrapatellar fat pad. This was excised sharply tangentially with the fibers of the patellar tendon. I then proceed to remove the peripheral osteophytes. This was done with a rongeur. I then proceed with distal femoral resection. He did have near full extension. Planned 9 mm resection was done. The femoral canal was then entered in the midline of the femur, approximately 10 mm anterior to the origin of the posterior cruciate ligament. The peam was then advanced down the center of the femur and placed intramedullary. Based on preoperative radiographs of the angle between the anatomic and the mechanical axis of the femur, was approximately 4 to 5 degrees. The valgus angle of the distal femoral cutting guide was then set at 4 degrees for the right knee. The distal femoral cutting guide was then advanced over the intramedullary pema. This was seated firmly against the femur. I then, as mentioned, planned to take 9 mm off the distal femur. Cutting block was then secured onto the femur with pins. The jig was then removed and the distal femoral cut was made through the slot of the block. The pins were then removed from the distal femoral cutting block was removed. The accuracy of the distal femoral cuts was checked with two flats bars. I then proceeded with femoral sizing. The posterior referencing sizing guide was held firmly against it to resect the distal surface of the femur. The posterior condyles were resting on the posterior plane of the guide. Sizing stylist was then placed onto the anterior femur. The size was measured as a size 8. I then assessed for femoral rotation. The plan was for 3 degrees of external rotation. 3 degrees of external rotation was placed onto the jig. These holes were then marked. I then confirmed the rotation by three separate methods. This was done using epicondylar axis as well as white sides line and posterior referencing. It was deemed that the external rotation was proper. I then went forward placing the femoral cutting block. This was placed over the previously placed pin holes. The perla wing was then placed onto the anterior slots to make sure that we had not notched the anterior femur with the anterior femoral cut. I then proceeded with the anterior femoral cut. This was flushed with the anterior cortex of the femur. Posterior cuts were then made followed by the anterior chamfer cut and the posterior chamfer cut. The cutting block was then removed. Throughout the resection, the collaterals were protected with retractors. I then placed a trial size 8 femur. It fit very nicely. Medial and lateral and fit flush with the distal end of the femur. The drill holes were then made. I then proceeded with tibial cutter. I planned for a cruciate retaining knee. The guide was placed and set for varus valgus and for slope. The height was set for approximate 2 mm resection from the medial tibial plateau which was the lower side. I was happy with the alignment and the amount of resection. The cutting block was then pinned to the proximal tibia. The alignment pema was removed and the proximal tibia was resected with reciprocating saw. Again this was done with retractors protecting the collateral ligaments as well as the posterior cruciate ligament. I then proceeded to evaluate the flexion and extension gaps. 10 mm block was placed. The flexion and extension gaps were equal. I then proceeded with resection of the posterior osteophytes. He had moderate posterior osteophytes. This was done with a curved osteotome. This resected the posterior osteophytes and posterior capsule. Stripping was also done of the posterior aspect of the femur at this time. The osteophytes were then removed. I then proceeded to resect the patella. The thickness of the patella was measured using the caliber. The thickness was 22 mm. The thickness anticipated of the patellar dome was taken into account. The resection was then performed and confirmed to be equal in four quadrants using a caliper. The resection was then performed and confirmed to be equal in four quadrants using a caliper. Approximately 14 mm of bone remained after resection. A 32 x 8.5 mm standard patellar trial was then placed. The holes were then drilled and trial was then placed. I then proceeded with sizing the tibial plate. A size E tibial plate fit very nicely. I then placed a trial femur, the tibial tray and the patellar button. A 10 mm trial tibial insert was also placed. The components fit very nicely. He had full flexion and extension. The extension flexion gaps were equal and stable to both varus and valgus stress. The patella tracked appropriately. The tibial tray rotation was marked with Bovie. This was externally rotated properly. I then proceeded with tibial preparation. I first drilled the femoral holes and removed the femoral component. The tibial tray was then set for proper external rotation as well as medial lateral placement onto the tibia. It was pinned into place. I then proceed with punching the keel. As I proceeded with punching the keel, I did run into the tibial interference screw for the previous ACL reconstruction. At this point, I extended my incision distally approximately 1 to 2 cm and then I was easily able to find the distal aspect of the tibial screw and then removed it with large fragment screwdriver. I then proceeded with punching the keel. I then decided to proceed with cementing of all the components. The knee was thoroughly irrigated with sterile saline solution via pulse lavage. The lateral geniculate artery was then ratified and cauterized. All blood was removed from the bone at the tibial femur and patella with pulse lavage. I then proceeded with cementing. Two packs of antibiotic bone cement were prepared on the back table by ophthalmic surgical assistant. I then proceeded with cementing the tibia. First, the cement was impacted into the keel as well as deeply seated into the bone. A second coat of cement was then placed. The tibia was then impacted into place. Excess cement was removed with Cushings and Jokers. I then proceeded with cementing of the femoral component. Femoral component was also cement using standard technique. Excess cement was removed. A 10 mm trial insert was then placed into the knee. It was brought into full extension with constant axial load placed until the cement had hardened. The patellar component was then cemented. This was held firmly with a compressive device until the cement had dried. When the cement had dried, the knee was taken out of extension. All excess cement was removed from around the prosthesis. I then trialed the knee with 10 mm insert. Flexion/extension gaps were appropriate. The knee was stable. It came into full extension. I decided to go forward with a 10 mm cross link medial congruent cruciate retaining tibial insert. Polyethylene was then placed onto the tibial tray and locked into place. The knee was then reduced. The knee was again further irrigated with sterile saline solution with antibiotic added. The tourniquet was then deflated. The total tourniquet time for the procedure was 60 minutes at 250 mmHg. Final components were Katey Persona size 8 cruciate retaining femoral component, a size E tibial tray, a 10 mm medial congruent cruciate retaining polyethylene insert and a 32 x 8.5 mm patella. I then proceeded with closure. Again, the knee was then thoroughly irrigated with antibiotic impregnated saline solution. The quadriceps tendon and the medial retinaculum were then reapproximated with #2 Ethibond suture. The extension mechanism was then closed with a running #2 Quill suture. Subcutaneous tissues were then closed with 2-0 Vicryl interrupted suture. The skin was closed with running 3-0 Quill suture. Dermabond was then applied to the incision. Sterile compressive dressings were then applied. All sponge and needle counts were deemed correct prior to closure. The patient then tolerated the procedure without apparent complications. He was transferred to recovery room in stable condition. KAHLIL
== END 2016-09-08 19:45 | disposition home health service (06) | DRG 467 ==
LOC: 2ORMAIN 10:14 → 3SUR 14:27
PROVIDERS: ADMIT Orthopaedic Surgery Sports Medicine; ATTEND Orthopaedic Surgery Sports Medicine
PROC: 0SRC0J9 Replacement of Right Knee Joint with Synthetic Substitute, Cemented, Open Approach (ICD-10-PCS; principal; 2016-09-07 12:00)
PROC: 0SPV0JZ Removal of Synthetic Substitute from Right Knee Joint, Tibial Surface, Open Approach (ICD-10-PCS; principal; 2016-09-07 12:00)
DX: M17.11 Unilateral primary osteoarthritis, right knee (principal); D62 Acute posthemorrhagic anemia; F41.9 Anxiety disorder, unspecified; F51.04 Psychophysiologic insomnia; R33.8 Other retention of urine; N40.1 Benign prostatic hyperplasia with lower urinary tract symptoms; Z79.82 Long term (current) use of aspirin; Z79.899 Other long term (current) drug therapy; Z80.42 Family history of malignant neoplasm of prostate
CPT/HCPCS: 85025; 88300

== ENCOUNTER → 2017-10-15 | Outpatient (CLI) | payer MEDICAID ==
--- NOTE | 2017-10-16 09:21 | ECHOF ---
Referral Reason:I38 early cystolic murmur MEASUREMENTS -------- HEIGHT: 177.8 cm WEIGHT: 72.6 kg BP: RVIDd: 2.7 cm (< 3.3) IVSd: 0.9 cm (0.6 - 1.1) LVIDd: 4.0 cm (3.9 - 5.3) LVPWd: 0.9 cm (0.6 - 1.1) IVSs: 1.3 cm LVIDs: 3.3 cm LVPWs: 1.2 cm LAESV Index (A-L): 15.46 ml/m Ao Diam: 3.8 cm (2.0 - 3.7) AV Cusp: 0.9 cm (1.5 - 2.6) LA Diam: 2.9 cm (2.7 - 3.8) EPSS: 1.2 cm MV E Rodney: 0.59 m/s MV DecT: 292 ms MV A Rodney: 0.66 m/s MV E/A Ratio: 0.90 AV maxP.50 mmHg AV meanP.40 mmHg AR PHT: 675 ms RAP: 5.00 mmHg RVSP: 24.42 mmHg MV EF SLOPE: 61.98 mm/s (70 - 150) MV EXCURSION: 1.16 cm (> 18.000) FINDINGS -------- Sinus rhythm. This was a technically good study. The left ventricular size is normal. Left ventricular wall thickness is normal. Overall left vent ricular systolic function is normal with, an EF between 55 - 60 %. The right ventricle is normal in size and function. Normal LA size by volume 22+/-6 ml/m2. The right atrium is normal in size. Aortic valve is trileaflet and is mildly thickened. There is mjga-[id number]-bcyekfgj aortic regurgitation. There is no evidence of aortic stenosis. The mitral valve leaflets are mildly thickened. Mild mitral regurgitation is present. Mild tricuspid regurgitation present. Right ventricular systolic pressure is normal at < 35 mmHg. There is no evidence of pulmonary hypertension. Trace/mild (physiologic) pulmonic regurgitation. The aortic root size is normal. Normal inferior vena cava with normal inspiratory collapse consistent with estimated right atrial pre ssure of 5 mmHg. There is no pericardial effusion. CONCLUSIONS -------- 1. Sinus rhythm. 2. This was a technically good study. 3. The left ventricular size is normal. 4. Left ventricular wall thickness is normal. 5. Overall left ventricular systolic function is normal with, an EF between 55 - 60 %. 6. Normal LA size by volume 22+/-6 ml/m2. 7. Aortic valve is trileaflet and is mildly thickened. 8. There is eiuz-gq-kvbtamcc aortic regurgitation. 9. The mitral valve leaflets are mildly thickened. 10. Mild mitral regurgitation is present. 11. Mild tricuspid regurgitation present. 12. Right ventricular systolic pressure is normal at < 35 mmHg. 13. There is no evidence of pulmonary hypertension. 14. Trace/mild (physiologic) pulmonic regurgitation. 15. The aortic root size is normal. 16. There is no pericardial effusion. AIRCRAFT DETAIL DRAFTSPERSON: Rod Thomas RDCS
== END | disposition home or self-care (01) ==
LOC: RADECHMAIN 15:04
PROVIDERS: ATTEND Family Medicine
DX: I08.3 Combined rheumatic disorders of mitral, aortic and tricuspid valves (principal)
CPT/HCPCS: 93306

== ENCOUNTER → 2017-10-19 | Outpatient (CLI) | payer MEDICAID ==
--- NOTE | 2017-10-19 11:36 | US ---
EXAMINATION TYPE: US liver DATE OF EXAM: 10/19/2017 COMPARISON: NONE CLINICAL HISTORY: R74.8 Abnormal levels of other serum enzymes. Elevated liver enzymes EXAM MEASUREMENTS: Liver Length: 13.8 cm Gallbladder Wall: 0.3 cm CBD: 0.4 cm Right Kidney: 9.4 x 4.9 x 5.1 cm. Pancreas: limited evaluation due to overlying bowel content Liver: appears wnl Gallbladder: no evidence of stones Evidence for sonographic Ceron's sign: no CBD: wnl Right Kidney: no evidence of hydronephrosis. There may be a column of Neal or dromedary hump righ t kidney. Recommend short-term follow-up in 6 months to reevaluate the kidneys. IMPRESSION: 1. 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 Confirmatio n of stability with follow-up retroperitoneal ultrasound 6 months is recommended.
== END ==
LOC: RADUSWWP 07:06
PROVIDERS: ATTEND Family Medicine
DX: R74.8 Abnormal levels of other serum enzymes (principal)
CPT/HCPCS: 76705

== ENCOUNTER 2017-11-27 10:50 | Day surgery (SDC) | payer MEDICAID ==
[2017-11-26 08:24] VITALS: BMI 22.9
[~2017-11-27 10:50] MED LIST changes: -ACETAMINOPHEN TAB 500 MG TAB PO ONE; +HYDROmorphone 0.5 MG/0.5 ML SYRINGE IVP PRN; -HYDROmorphone 1 MG/ML 1 ML SYRINGE IVP PRN; -MELOXICAM 7.5 MG TAB PO ONE; -MIDAZOLAM 2 MG/2 ML VIAL IV PRN; -ROPIVACAINE 246.25 MG, EPINEPHrine 0.5 MG, KETOROLAC 30 MG, cloNIDine HCL/PF 80 MCG, WA... MISCELLANE ONE; -TRANEXAMIC ACID 1,000 MG in SODIUM CHLORIDE 0.9% 100 ML IVPB ONE; -ceFAZolin 2 GM in SODIUM CHLORIDE 0.9% 100 ML IVPB ONE
[2017-11-27 11:21] VITALS: RESP 16; TEMP 97.7
[2017-11-27] MEDS ORDERED: PROPOFOL 10 MG/ML 20 ML VIAL IV ONE (12:43)
[2017-11-27 13:44] VITALS: BP 120/88; PULSE 65
--- NOTE | 2017-11-27 14:05 | P.PCN ---
Date of Procedure: 11/27/17 Procedure(s) Performed: procedures: 1. Esophagogastroduodenoscopy and biopsy. 2. Total colonoscopy. Preoperative diagnosis: Gastroesophageal reflux disease and family history of colon cancer. Postoperative diagnosis: 1. Small hiatal hernia with no obvious esophagitis or complicated reflux disease. 2. Mild antral gastritis. 3. Sigmoid diverticulosis with no evidence of acute diverticulitis or strictures. 4. No polyps or tumors seen. Preparation: HalfLytely prep. Sedation: Was provided by anesthesia. Brief clinical history:the patient is a 57-year-old male who is scheduled for this evaluation because of family history of colon cancer and chronic reflux symptoms. His last evaluation was in 2011. Procedure: With the patient on his left lateral decubitus position and after informed consent and adequate sedation, I passed the Olympus-GIF 160 video upper endoscope through the cricopharyngeus down the esophagus. GE junction was around 40 cm from the incisors and there was a small sliding hiatal hernia. The esophagus did not show any obvious erosions, ulcers, strictures or Sheets 's esophagus. The endoscope was then passed into the stomach which was insufflated with air and inspected in detail including the retroflex view in the cardia. There was some mottling and erythema in the antrum but no ulcers or erosions. Pyloric channel, duodenal bulb, post bulbar area and descending duodenum where essentially within normal limits. Because of his symptoms, I obtained biopsies from the duodenum, antrum and esophagus then the endoscope was withdrawn and I proceeded with the colonoscopy. Perianal area did not show any fissures or fistulas. There were no masses felt on digital rectal examination. The Olympus CFQ 160L video colonoscope was then inserted in the rectum in the usual fashion and advanced to the cecum. The colon appeared healthy with no edema, erythema, friability, ulceration, exudation or spontaneous bleeding. Several diverticular orifices were seen scattered in the sigmoid with no evidence of acute diverticulitis or strictures. No polyps or tumors were seen. I retroflexed the endoscope in the rectum before the endoscope was withdrawn. The patient tolerated the procedure well. Plan: The patient was reassured. Will await biopsy results and make further plans based on his course and biopsy results.I discussed dietary measures and recommended repeat colonoscopy in 5 years. I will keep you updated on his progress.
== END 2017-11-27 14:11 | disposition home or self-care (01) ==
LOC: ORWHC2ENDO 10:50
DX: Z12.11 Encounter for screening for malignant neoplasm of colon (principal); K29.50 Unspecified chronic gastritis without bleeding; K44.9 Diaphragmatic hernia without obstruction or gangrene; K57.30 Diverticulosis of large intestine without perforation or abscess without bleeding; Z80.0 Family history of malignant neoplasm of digestive organs; K21.9 Gastro-esophageal reflux disease without esophagitis; E78.5 Hyperlipidemia, unspecified; F41.9 Anxiety disorder, unspecified; G62.9 Polyneuropathy, unspecified; Z79.82 Long term (current) use of aspirin; Z79.899 Other long term (current) drug therapy
CPT/HCPCS: 88305; 43239; J2704; G0105

== ENCOUNTER → 2018-10-10 | Outpatient (CLI) | payer MEDICAID ==
[2018-10-10 08:32] LABS: Basophils # (A) 0.1 k/uL (0-0.2); Basophils % (A) 1 %; Eosinophils # (A) 0.5 k/uL (0-0.7); Eosinophils % (A) 11 %; HCT 48.3 % (39.0-53.0); HGB 15.8 gm/dL (13.0-17.5); Lymphocytes # (A) 1.6 k/uL (1.0-4.8); Lymphocytes % (A) 36 %; MCHC 32.7 g/dL (31.0-37.0); MCV 94.9 fL (80.0-100.0); Mean Platelet Volume 6.6; Monocytes # (A) 0.3 k/uL (0-1.0); Monocytes % (A) 6 %; Neutrophils # (A) 1.9 k/uL (1.3-7.7); Neutrophils % (A) 43 %; Platelet Count 197 k/uL (150-450); RBC 5.09 m/uL (4.30-5.90); RDW 13.9 % (11.5-15.5); WBC 4.4 k/uL (3.8-10.6)
[2018-10-10 16:22] LABS: African American GFR (CKD) 107.2 (60.0-200.0); Albumin 4.5 g/dL (3.80-4.90); Albumin/Globulin Ratio 1.96 (1.60-3.17); Anion Gap 7.6 mmol/L (4.00-12.00); BUN/Creat Ratio 12.22 Ratio (12.00-20.00); Calcium 9.6 mg/dL (8.7-10.3); Carbon Dioxide 30.4 mmol/L (21.6-31.8); Chol/HDL Ratio 2.53; Globulin 2.3 g/dL (1.6-3.3); Potassium 4.9 mmol/L (3.5-5.5); Total Bilirubin 0.5 mg/dL (0.3-1.2); Total Protein 6.8 g/dL (6.2-8.2)
== END | disposition home or self-care (01) ==
LOC: LABWHC1 07:41
PROVIDERS: ATTEND Physician Assistant
DX: J44.9 Chronic obstructive pulmonary disease, unspecified (principal); E78.5 Hyperlipidemia, unspecified; R03.0 Elevated blood-pressure reading, without diagnosis of hypertension; R01.1 Cardiac murmur, unspecified
CPT/HCPCS: 36415; 80053; 80061; 82785; 83880; 85025

== ENCOUNTER → 2018-10-31 | Outpatient (CLI) | payer MEDICAID ==
--- NOTE | 2018-11-01 11:01 | ECHOF ---
Referral Reason:I08.0 mitral and aortic incompetence MEASUREMENTS -------- HEIGHT: 182.9 cm WEIGHT: 73.9 kg BP: RVIDd: 3.6 cm (< 3.3) IVSd: 1.2 cm (0.6 - 1.1) LVIDd: 4.4 cm (3.9 - 5.3) LVPWd: 1.2 cm (0.6 - 1.1) IVSs: 1.4 cm LVIDs: 3.5 cm LVPWs: 1.4 cm LA Diam: 3.9 cm (2.7 - 3.8) LAESV Index (A-L): 23.46 ml/m Ao Diam: 4.0 cm (2.0 - 3.7) AV Cusp: 0.9 cm (1.5 - 2.6) LA Diam: 2.9 cm (2.7 - 3.8) MV EXCURSION: 9.024 mm (> 18.000) MV EF SLOPE: 55 mm/s (70 - 150) EPSS: 1.6 cm MV E Rodney: 0.39 m/s MV DecT: 241 ms MV A Rodney: 0.81 m/s MV E/A Ratio: 0.48 AV maxP.32 mmHg AV meanP.05 mmHg RAP: 5.00 mmHg RVSP: 22.41 mmHg FINDINGS -------- Sinus rhythm. This was a technically adequate study. The left ventricular size is normal. There is mild concentric left ventricular hypertrophy. Overa ll left ventricular systolic function is low-normal with, an EF between 50 - 55 %. The diastolic fi lling pattern is normal for the age of the patient 8.41. The right ventricle is mildly enlarged. Normal LA size by volume 22+/-6 ml/m2. The right atrial size is normal. There is mild to moderate aortic valve sclerosis. There is [id number] aortic regurgitation. There is mild aortic stenosis present. Peak/mean gradient across the Aortic Valve is 15.32mmHg / 8 .05mmHg. The mitral valve leaflets are mildly thickened. Mild mitral regurgitation is present. Mild tricuspid regurgitation present. There is no evidence of pulmonary hypertension. The right v entricular systolic pressure, as measured by Doppler, is 22.41mmHg. There is no pulmonic regurgitation present. Aortic Root is Dilated and measures 4.0cm. There is no pericardial effusion. CONCLUSIONS -------- 1. Sinus rhythm. 2. This was a technically adequate study. 3. The left ventricular size is normal. 4. There is mild concentric left ventricular hypertrophy. 5. Overall left ventricular systolic function is low-normal with, an EF between 50 - 55 %. 6. The diastolic filling pattern is normal for the age of the patient 8.41 7. The right ventricle is mildly enlarged. 8. Normal LA size by volume 22+/-6 ml/m2. 9. There is mild to moderate aortic valve sclerosis. 10. There is bbph-eq-qnyrrysg aortic regurgitation. 11. There is mild aortic stenosis present. 12. Peak/mean gradient across the Aortic Valve is 15.32mmHg / 8.05mmHg. 13. The mitral valve leaflets are mildly thickened. 14. Mild mitral regurgitation is present. 15. Mild tricuspid regurgitation present. 16. There is no evidence of pulmonary hypertension. 17. There is no pulmonic regurgitation present. 18. Aortic Root is Dilated and measures 4.0cm. 19. There is no pericardial effusion. STRATEGY MANAGER: Renae Montano RDCS
== END ==
LOC: RADECHMAIN 13:09
PROVIDERS: ATTEND Family Medicine
DX: I08.3 Combined rheumatic disorders of mitral, aortic and tricuspid valves (principal); I77.810 Thoracic aortic ectasia
CPT/HCPCS: 93306

== ENCOUNTER → 2018-12-16 | Outpatient (CLI) | payer MEDICAID ==
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
== END | disposition home or self-care (01) ==
LOC: RADCTMAIN 13:21
PROVIDERS: ATTEND Orthopaedic Surgery
DX: M25.572 Pain in left ankle and joints of left foot (principal); M19.172 Post-traumatic osteoarthritis, left ankle and foot

== ENCOUNTER 2018-12-19 09:45 | Inpatient (IN) | payer MEDICAID ==
[2019-01-01 15:40] VITALS: BMI 22.9
[2019-01-08] MEDS ORDERED: ONDANSETRON 4 MG/2 ML VIAL IVP PRN (21:22)
[2019-01-09] MEDS: LACTATED RINGERS 1,000 ML IV SCH ×2 (08:18→22:32)
[2019-01-09] MEDS ORDERED: DEXAMETHASONE SOD PHOSPHATE 10 MG/ML 1 ML VIAL IV ONE ×2 (08:44)
[2019-01-09] MEDS ORDERED: MIDAZOLAM 2 MG/2 ML VIAL IVP ONE (08:52)
[2019-01-09] MEDS ORDERED: fentaNYL (PF) 50 MCG/ML 2 ML AMP IV ONE (08:53)
--- NOTE | 2019-01-09 09:23 | P.ANPRN ---
Procedure Note - Anesthesia - Nerve Block Performed Left Popliteal Single Time Out Performed: Yes Date of Procedure: 01/09/19 Procedure Start Time: 08:50 Procedure Stop Time: 08:58 Location of Patient: PreOp Indication: Requested by Surgeon Specifically requested for management of pain by DrSofiya: Chivo Christian Sedation Type: Sedate with meaningful contact maintained Preparation: Sterile Prep Position: Right Lateral Catheter: None Needle Types: Pajunk Needle Gauge: 21 Ultrasound used to visualize needle placement: Yes Ultrasound used to observe medication spread: Yes Injectate: 0.5% Ropivacaine (see comment for volume) (20 cc plus decadron 4 mg) Blood Aspirated: No Pain Paresthesia on Injection Noted: No Resistance on Injection: Normal Image Stored and Saved: Yes Events: Uneventful and Well Tolerated
--- NOTE | 2019-01-09 09:29 | P.HPOR ---
History of Present Illness H&P Date: 01/09/19 The patient is a very pleasant 58-year-old male with a long-standing history of problems in his left ankle. He previously had an open ankle injury that required multiple surgeries. He developed wound breakdown and a deep infection. This required hardware removal and skin grafting over the lateral aspect of the ankle. 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 He was initially managed nonsurgically with activity modification, bracing, occasional corticosteroid injections, and observation. The patient and his requested going forward with surgery. His x-rays showed severe posttraumatic, varus ankle arthritis. Most of his pain was over the anterior and lateral aspect of the ankle. There was minimal pain over the posterior facet of the subtalar joint. A computed tomography scan was obtained and showed severe arthritis of the ankle joint and minimal arthritis of the subtalar joint. My recommendation was to perform an isolated fusion of the ankle joint through an anterior approach to avoid making an incision through his lateral skin graft at the site where he had delayed wound healing and an open infection. We discussed the possibility of symptomatically subtalar joint arthritis that may continue to cause symptoms. The majority of the patient's symptoms however appeared to be coming from the ankle joint. The patient agreed to this and requested going forward with surgery Past Medical History Past Medical History: GERD/Reflux, Hyperlipidemia, Osteoarthritis (OA) Additional Past Medical History / Comment(s): Heart Murmur, minor leaky valve. Lt ankle frozen, OA since injury. Hx constipation. 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 Total Rt Knee. Past Anesthesia/Blood Transfusion Reactions: No Reported Reaction Smoking Status: Never smoker - Past Family History Mother Family Medical History: No Reported History Father Family Medical History: Cancer Additional Family Medical History / Comment(s): prostate Sister(s) Family Medical History: Cancer Additional Family Medical History / Comment(s): breast Medications and Allergies Home Medications Medication Instructions Recorded Confirmed Type ALPRAZolam 1 mg PO Q3-4H 05/16/17 12/05/19 History Gabapentin [Neurontin] 300 mg PO BID 06/20/16 01/09/19 History Gabapentin [Neurontin] 900 mg PO HS 06/20/16 01/09/19 History Mirtazapine [Remeron] 45 mg PO HS 06/20/16 01/09/19 History Allergies Allergy/AdvReac Type Severity Reaction Status Date / Time No Known Allergies Allergy Verified 01/09/19 08:08 Physical Examination A focused exam of the left ankle was conducted. On inspection there is a healed skin graft over the lateral aspect of the ankle. There is diffuse tenderness over the anterior and lateral aspect of the ankle. There is a palpable dorsalis pedis and posterior tibial pulse. The toes are warm and well perfused with brisk capillary refill. Results X-rays and computed tomography scan of the left ankle show severe, end-stage varus ankle arthritis Assessment and Plan (1) Osteoarthritis Current Visit: No Status: Acute Priority: Medium Code(s): M19.90 - UNSPECIFIED OSTEOARTHRITIS, UNSPECIFIED SITE SNOMED Code(s): 333960017 Plan: I had a long discussion with the patient and his in the office setting regarding treatment of his severe varus ankle arthritis. He has failed several years of nonsurgical treatment including corticosteroid injections, bracing, oral NSAID pain medication, and observation. 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 We discussed different surgical options for ankle arthritis. Due to the patient's relatively young age, physically demanding job, degree of varus deformity, history of skin grafting and infection we discussed that he is a better candidate for an ankle fusion as opposed to a replacement. We discussed different surgical approaches to addressing his arthritis. My recommendation was to perform an anterior approach to the ankle to avoid dissecting through his lateral skin graft. Both the patient and his understand and agree to this. We also discussed the potential for an indolent deep infection. They understand if there is any sign of deep infection cultures will be taken and the fusion attempt will be abandoned at this setting. We also discussed the potential risks and complications which both the patient and his understand and are aware of. Time with Patient: Greater than 30
[2019-01-09] MEDS ORDERED: LIDOCAINE 1% INJ 10MG/ML (20 ML MDV) ONE (09:38)
[2019-01-09] MEDS ORDERED: HYDROmorphone (PF) 1 MG/ML ONE (09:38)
[2019-01-09] MEDS ORDERED: PROPOFOL 10 MG/ML 20 ML VIAL IV ONE (09:38)
[2019-01-09] MEDS ORDERED: fentaNYL (PF) 50 MCG/ML 2 ML AMP ONE (09:38)
[2019-01-09] MEDS ORDERED: SUCCINYLCHOLINE CHLORIDE 100 MG/5 ML SYR IV ONE (09:38)
[2019-01-09] MEDS ORDERED: MIDAZOLAM 2 MG/2 ML VIAL ONE (09:38)
[2019-01-09] MEDS ORDERED: ROPIVACAINE 5 MG/ML 30 ML VIAL ONE (09:38)
[2019-01-09] MEDS ORDERED: DEXAMETHASONE SOD PHOSPHATE 4 MG/ML 1 ML VIAL ONE (09:38)
[2019-01-09] MEDS ORDERED: PHENYLEPHRINE-0.9% NACL SYG 1 MG/10 ML SYRINGE ONE (09:38)
[2019-01-09] MEDS ORDERED: WATER FOR INJECTION, STERILE 10 ML VIAL IV ONE (09:38)
[2019-01-09] MEDS ORDERED: ePHEDrine SULFATE/0.9% NACL/PF 50 MG/5 ML SYRINGE IV ONE (09:38)
[2019-01-09] MEDS: LACTATED RINGERS 1,000 ML IV ONE ×2 (12:08→12:29)
[2019-01-09] MEDS ORDERED: LACTATED RINGERS 1,000 ML IV ONE (12:08)
[2019-01-09] MEDS ORDERED: HYDROmorphone 1 MG/ML 1 ML SYRINGE IVP PRN (12:34)
[2019-01-09] MEDS ORDERED: MAGNESIUM HYDROXIDE 2,400 MG/10 ML CUP PO PRN (12:34)
[2019-01-09] MEDS ORDERED: ONDANSETRON 4 MG/2 ML VIAL IVP PRN (12:34)
[2019-01-09] MEDS ORDERED: NALOXONE 0.4 MG/ML 1 ML VIAL IV PRN (12:34)
--- NOTE | 2019-01-09 12:34 | P.OP ---
Date of Procedure: 01/09/19 Preoperative Diagnosis: 1. Posttraumatic left ankle arthritis with history of open ankle fracture dislocation Postoperative Diagnosis: Same Procedure(s) Performed: 1. Left tibiotalar joint arthrodesis through an anterior approach 2. Use of fluoroscopy by physician, left ankle 3. Application of short leg splint by physician, left ankle Anesthesia: [facility] regional Surgeon: Chivo Christian Gis Software Engineer #1: Niraj Klein Estimated Blood Loss (ml): 10 IV fluids (ml): 1,200 Pathology: other (Deep tissue and soft tissue swab sent for microbiology and cultures) Condition: stable Disposition: PACU Indications for Procedure: The patient is a very pleasant 58-year-old male with a long-standing history of problems with his left ankle. He previously sustained an open injury to the ankle that required multiple surgeries. He ultimately required skin grafting. He reports a history of open wound and deep infection. Unfortunately he developed severe posttraumatic arthritis of the ankle. He is initially managed nonsurgically but failed to improve and requested surgery. I had a long discussion with the patient and his in the office setting on different surgical options. Most of his pain seemed to be attributable to the ankle although he did have some degenerative changes in the posterior facet of the subtalar joint. A computed tomography scan was obtained which showed severe arthritis of the tibiotalar joint and mild arthritic changes in the subtalar joint. The patient also had a large skin graft over the lateral aspect of the ankle. My recommendation was to perform an isolated ankle fusion through an a nterior approach. We also discussed ankle replacement but due to the amount of deformity in the patient's ankle, age, active lifestyle, history of infection, and tenuous skin graft over the anterolateral aspect of the ankle we both agreed that an ankle fusion would be more predictable. We discussed the potential risks and complications of an ankle fusion including but not limited to risk of anesthesia, superficial infection, deep infection, delayed wound healing, wound necrosis, damage to local blood vessels or nerves, nonunion, malunion, symptom medical hardware, adjacent joint arthritis, DVT, PE, other medical complications, and possibly loss of life or limb. The patient voiced his understanding that while these are the most common complications other less common complications are possible. He provided his verbal and written consent to go forward with surgery. Operative Findings: There was no sign of deep infection but deep tissue was sent for culture and swabs of the ankle were also sent for culture given the patient's history of deep infection. Description of Procedure: The patient was identified in preoperative holding and the correct left ankle was marked with my initials. I reviewed the consent form with the patient and his . All of their questions were answered. The patient was given a block by anesthesia. He was then brought back to the operating room. He was positioned on the OR table where a general anesthetic and preoperative antibiotics were given. A tourniquet was applied to the proximal aspect of the left leg. The right leg was secured to the table with foam and tape. The left leg was then prepped and draped in the standard sterile fashion. Prior to starting surgery timeout was performed identifying the correct patient, operative extremity, and procedure. The patient's leg was then elevated, exsanguinated with an Esmarch bandage, and the tourniquet was inflated to 250 mmHg. I began by outlining an anterior approach to the ankle. Prior surgical scars in his skin graft were taken into consideration when marking out the incision. Skin incision was made with a scalpel and dissection was carried down carefully through the subcutaneous tissue. A branch of the superficial peroneal nerve was identified and carefully retracted. The tibialis anterior tendon was left in its sheath and the extensor retinaculum was incised lateral to the tibialis anterior tendon. I developed the interval between the tibialis anterior and EHL tendon. Crossing vascular structures were controlled with electrocautery. The neurovascular bundle was identified and carefully retracted laterally. The capsule over the ankle joint was sharply elevated off the distal tibia. The synovium was found to be very thickened. There is a small serous fluid collection in the ankle which did not appear infected but was swabbed and sent for culture. Deep tissue from the synovium was also sent for culture. The ankle appeared severely arthritic. A lamina food broker was placed in the joint which was gently distracted. The deltoid ligament was elevated off the talus subperiosteally using a tony elevator to help reduce the ankle joint. The bone in the medial aspect of the plafond and appeared slightly necrotic. Using curettes and osteotomes the remaining articular cartilage was removed. There is asymmetric bone loss with more bone loss medially. The bone was also very thickened sclerotic. A 4 mm round bur was used to take down the hard sclerotic bone to healthy bleeding cancellus bone. More bone was taken laterally to help correct the varus deformity in his ankle. The wound was then thoroughly irrigated and fluoroscopic images were taken. I was able to adequately reduce the varus deformity of the ankle and placed the ankle in appropriate position for fusion. A 2.5 mm drill bit was used to thoroughly fenestrate the subchondral bone to help facilitate bleeding for fusion. The 4 mm alva was also used to perforate the bone to further allow healing. Augment was then injected into the ankle joint to help with fusion. A guidepin for a cannulated 4.5 mm screw was placed in the medial malleolus. The joint was held reduced and the syrup mixer assistant drove the K wire into the talus. The position of the K wire was verified with fluoroscopy as well as reduction of the ankle joint. A second K wire was placed anterolaterally and its position verified with fluoroscopy. Partially threaded cannulated 4.5 mm screws were placed generating excellent compression with great purchase in the hard talar bone. Fluoroscopy was used to verify position of the screws. I then trialed several anterior fusion plates and an anterolateral plate seemed to fit the patient's unique posttraumatic anatomy best. A nonlocking 4.5 mm screw was placed proximally and distally into the tibia and talus respectively. Locking screws were then placed. Final fluoroscopic images were taken. The wound was gently irrigated so as to not wash away the augment. The capsule the ankle joint was reapproximated using 0 Vicryl. The extensor retinaculum was closed with a running 0 Vicryl. The deep subcu was reapproximated using 3-0 Monocryl. The skin was closed using 3-0 nylon Allgower modification of the Donati stitch. A sterile dressing consisting of brown ordering stretchy Steri-Strips, Betadine soaked Adaptic, 4 x 4, and web roll was applied. The patient was awoken from his anesthetic, transferred from the OR table to a gurney, and brought to recovery impel the procedure well. Niraj Klein PA-C was required as a skilled syrup mixer assistant for patient positioning, surgical exposure, placement of hardware, closure of wounds, and application of splint. Plan: The patient is going to be admitted overnight for IV antibiotics, pain control, and physical therapy. He can discharge home when his pain is controlled and he passes physical therapy. We will follow his cultures and if any become positive we'll consult infectious disease for suppressive antibiotics. The patient will need follow-up in the office in 2 weeks for splint removal nonweightbearing x-rays of the ankle and likely suture removal.
--- NOTE | 2019-01-09 12:35 | FL ---
EXAMINATION TYPE: FL guidance operating room DATE OF EXAM: 01/09/2019 HISTORY: Flouroscopy time 39 seconds of fluoroscopy provided. IMPRESSION: 1. Fluoroscopy time.
--- NOTE | 2019-01-09 12:37 | XR ---
EXAMINATION TYPE: XR ankle limited LT DATE OF EXAM: 01/09/2019 COMPARISON: NONE HISTORY: ORIF TECHNIQUE: 4 views submitted FINDINGS: Postsurgical change appears in near-anatomic alignment IMPRESSION: Postoperative change
[2019-01-09] MEDS: HYDROmorphone 0.5 MG/0.5 ML SYRINGE IVP PRN ×4 (13:56→14:22)
[2019-01-09] MEDS ORDERED: MIRTAZAPINE 45 MG TABLET PO SCH (21:00)
[2019-01-09] MEDS ORDERED: SENNOSIDES-DOCUSATE SODIUM 1 EACH TAB PO SCH (21:00)
[2019-01-09] MEDS ORDERED: GABAPENTIN 300 MG CAP PO SCH ×2 (21:00)
[2019-01-09] MEDS: ALPRAZolam 1 MG TAB PO PRN (21:17)
[2019-01-09] MEDS: HYDROcodone/APAP 5-325MG 1 EACH TAB PO PRN (21:18)
[2019-01-09] MEDS: SODIUM CHLORIDE 0.9% 1,000 ML IV SCH ×2 (21:19→23:40)
--- NOTE | 2019-01-09 23:36 | P.CONS ---
History of Present Illness - Reason for Consult Consult date: 01/09/19 Medical management Requesting physician: Chivo Christian - Chief Complaint Left ankle surgery - History of Present Illness Consultation: This is a very pleasant 58-year-old patient of Dr. Baltazar. Chronic stable medical conditions include hyperlipidemia, osteoarthritis, chronic insomnia, anxiety disorder. Patient underwent left ankle arthrodesis. Process by Dr. Christian. Postprocedure ankle is in a dressing. Is controlled. His is at the bedside. No nausea vomiting. No chest pain. Did tolerate some supper. No fever no chills. No chest pain. Review of systems: GEN.: None EYES: None HEENT: None NECK: None RESPIRATORY: None CARDIOVASCULAR: None GASTROINTESTINAL: None GENITOURINARY: None MUSCULOSKELETAL: Joint pains LYMPHATICS: None HEMATOLOGICAL: None PSYCHIATRY: Anxiety NEUROLOGICAL: Chronic insomnia, does well with Remeron Past medical history to include: Hyperlipidemia, osteoarthritis, postnasal drip, chronic insomnia, chronic anxiety, heart murmur Social history: Did work with a [employer], no smoking or alcohol. . Physical examination: VITAL SIGNS: 97.9, 70, 16, 157/90, 97% on room air GENERAL: BMI 25.3, propped up in bed. EYES: Pupils equal. Conjunctiva normal. HEENT: External appearance of nose and ears normal, oral cavity grossly normal. NECK: JVD not raised; masses not palpable. HEART: First and second heart sounds are normal; no edema. LUNGS: Respiratory rate normal; clear to auscultation. ABDOMEN: Soft, nontender, liver spleen not palpable, no masses palpable. PSYCH: Alert and oriented x3; mood and affect slightly anxiousl. NEUROLOGICAL: Cranial nerves grossly intact; no facial asymmetry, power and sensation grossly intact. LYMPHATICS: No lymph nodes palpable in the axilla and neck MUSCULOSKELETAL: Left ankle in a dressing cast INVESTIGATIONS, reviewed in the clinical context: Blood work from October 2018: White count 4.4 hemoglobin 15.8 platelets 197 creatinine 0.9 Assessment: -Left tibial talar joint arthrodesis from anterior approach, application of short-leg splint -Chronic anxiety disorder -Chronic insomnia -Possibly aortic sclerosis murmur Plan: Patient's home medications resumed. Care was discussed with the patient and in detail. Lovenox for DVT prophylaxis. Thank you Dr. Christian Past Medical History Past Medical History: GERD/Reflux, Hyperlipidemia, Osteoarthritis (OA) Additional Past Medical History / Comment(s): Heart Murmur, minor leaky valve. Lt ankle frozen, OA since injury. Hx constipation. 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 Total Rt Knee. Past Anesthesia/Blood Transfusion Reactions: No Reported Reaction Past Psychological History: Anxiety Additional Psychological History / Comment(s): states anxiety as a teen Smoking Status: Never smoker Past Alcohol Use History: None Reported Past Drug Use History: None Reported - Past Family History Mother Family Medical History: No Reported History Father Family Medical History: Cancer Additional Family Medical History / Comment(s): prostate Sister(s) Family Medical History: Cancer Additional Family Medical History / Comment(s): breast Medications and Allergies Home Medications Medication Instructions Recorded Confirmed Type ALPRAZolam 1 mg PO Q3-4H 06/20/16 01/09/19 History Gabapentin [Neurontin] 300 mg PO BID 06/20/16 01/09/19 History Gabapentin [Neurontin] 900 mg PO HS 06/20/16 01/09/19 History Mirtazapine [Remeron] 45 mg PO HS 06/20/16 01/09/19 History Allergies Allergy/AdvReac Type Severity Reaction Status Date / Time No Known Allergies Allergy Verified 01/09/19 08:08 Physical Exam Vitals: Vital Signs Temp Pulse Resp BP BP Pulse Ox 01/09/19 19:40 18 01/09/19 19:29 97.8 F 95 18 165/60 94 L 01/09/19 16:15 99 152/84 93 L 01/09/19 16:05 102 H 155/88 92 L 01/09/19 15:45 105 H 165/99 92 L 01/09/19 15:30 98.0 F 108 H 17 172/91 90 L 01/09/19 14:30 103 H 16 160/96 92 L 01/09/19 14:11 102 H 16 159/77 100 01/09/19 14:00 105 H 16 162/85 100 01/09/19 13:45 104 H 16 164/92 96 01/09/19 13:30 104 H 15 153/91 100 01/09/19 13:15 108 H 18 173/89 98 01/09/19 13:00 104 H 12 163/84 98 01/09/19 12:45 103 H 14 166/93 97 01/09/19 12:37 97.7 F 104 H 12 161/93 95 01/09/19 09:03 65 16 165/95 97 01/09/19 08:05 97.9 F 70 16 157/90 97 Intake and Output 01/09/19 01/09/19 01/10/19 14:59 22:59 06:59 Intake Total 1450 Output Total 50 700 Balance 1400 -700 Intake: IV 1450 Output: Urine 700 Estimated Blood Loss 50 Other: Voiding Method Urinal Weight 80.014 kg 80.014 kg Results Labs: Microbiology - Last 24 Hours (Table) 01/09/19 10:21 Wound Culture - Preliminary Leg - Left 01/09/19 10:21 Anaerobic Culture - Preliminary Leg - Left 01/09/19 10:21 Fungal Culture - Preliminary Leg - Left 01/09/19 10:21 Wound Culture - Preliminary Ankle - Left 01/09/19 10:21 Fungal Culture - Preliminary Ankle - Left 01/09/19 10:21 Fungal Culture - Preliminary Ankle - Left 01/09/19 10:21 Anaerobic Culture - Preliminary Ankle - Left 01/09/19 10:21 Anaerobic Culture - Preliminary Ankle - Left 01/09/19 10:21 Wound Culture - Preliminary Ankle - Left
[2019-01-10] MEDS: HYDROcodone/APAP 5-325MG 1 EACH TAB PO PRN ×3 (02:44→14:42)
[2019-01-10] MEDS: ALPRAZolam 1 MG TAB PO PRN (06:19)
[2019-01-10] MEDS: SODIUM CHLORIDE 0.9% 1,000 ML IV SCH (06:20)
[2019-01-10 07:47] VITALS: BP 133/77; PULSE 76; RESP 16; TEMP 98.1
[2019-01-10] MEDS ORDERED: ENOXAPARIN 40 MG/0.4 ML SYRINGE SQ SCH (09:00)
[2019-01-10] MEDS ORDERED: GABAPENTIN 300 MG CAP PO SCH ×2 (09:00→21:00)
[2019-01-10] MEDS: hydrOXYzine PAMOATE 25 MG CAP PO PRN ×2 (10:46→14:42)
[2019-01-10] MEDS ORDERED: MULTIVITAMINS, THERA 1 EACH TAB PO SCH (12:00)
--- NOTE | 2019-01-10 13:03 | P.DS ---
Providers Date of admission: 01/09/19 07:30 Expected date of discharge: 01/10/19 Attending physician: Chivo Christian Primary care physician: [facility] Course: This patient is a 58- year old male with a past medical history of hyperlipidemia, insomnia, and anxiety disorder that also has a history of an open left ankle fracture dislocation that presented to [facility] 01/09/19 to undergo elective surgery. The patient has been followed by Dr. Christian in the office for post-traumatic left ankle arthritis. After failing conservative treatment, the patient request surgery. The patient underwent a left tibiotalar joint fusion on 01/09/[address] Christian. The patient was admitted to [facility] following the procedure. The procedure was performed without complication or sequela. Vital signs are stable on post-operative day #1. Patient is examined bedside this morning. The patient states he is doing well, with minimal pain in the ankle, as his nerve block has not completely worn off. Per physical therapy, he did well transferring with the walker. He is tolerating his diet well. He denies chest pain, shortness of breath, nausea, vomiting. Vital signs stable. On examination, the patient is sitting up in bed in no apparent distress. He is alert and orientated x3. His breathing appears non-labored. On inspection of the left lower extremity, there is a bulky Howard splint in place. The splint is c lean, dry, intact without evidence of bleeding or drainage. The visible portion of the toes are warm and well-perfused with brisk capillary refill. He is able to wiggle toes without issue or pain. No pain with PROM of the toes. Right lower extremity is warm and well perfused, calf is soft and non-tender to palpation. Patient is discharged to home today, pending medical clearance. Plan - Discharge Summary Discharge Rx Participant: Yes New Discharge Prescriptions: New Aspirin 325 mg PO DAILY #14 tab Docusate [Colace] 100 mg PO BID #60 capsule Hydrocodone/Acetaminophen [W[place] 5-325] 1 tab PO Q4-6H PRN #40 tab PRN Reason: Pain No Action Mirtazapine [Remeron] 45 mg PO HS Gabapentin [Neurontin] 300 mg PO BID Gabapentin [Neurontin] 900 mg PO HS ALPRAZolam 1 mg PO Q3-4H Discharge Medication List ALPRAZolam 1 mg PO Q3-4H 06/20/16 [History] Gabapentin [Neurontin] 300 mg PO BID 06/20/16 [History] Gabapentin [Neurontin] 900 mg PO HS 06/20/16 [History] Mirtazapine [Remeron] 45 mg PO HS 06/20/16 [History] Aspirin 325 mg PO DAILY #14 tab 01/10/19 [Rx] Docusate [Colace] 100 mg PO BID #60 capsule 01/10/19 [Rx] Hydrocodone/Acetaminophen [Wellington 5-325] 1 tab PO Q4-6H PRN #40 tab 01/10/19 [Rx] Follow up Appointment(s)/Referral(s): Virgilio Baltazar MD [Primary Care Provider] - 01/17/19 10:00 am Chivo Christian MD [Medical Doctor] - 01/24/19 9:20 am Activity/Diet/Wound Care/Special Instructions: -Strict non-weight bearing on your operative leg. Do not remove your splint; Keep splint clean, dry, and intact. -We will continue to follow culture results, and if any become positive, we will contact infectious disease for antibiotic recommendations. -Use crutches, knee scooter, or a walker to ambulate after surgery. -Elevate and ice operative leg to help reduce swelling and control pain. -Take pain medications as prescribed. Take Colace as a stool softener. Take aspirin as prescribed for blood clot prevention. -Follow-up appointment with Dr. Christian in the office in 2 weeks. -Call the office with any questions or concerns, Discharge Disposition: HOME SELF-CARE
== END 2019-01-10 15:09 | disposition home or self-care (01) | DRG 494 ==
LOC: 2ORMAIN 01-09 07:30 → 4SSUR 01-09 15:31
PROVIDERS: ADMIT Orthopaedic Surgery; ATTEND Orthopaedic Surgery
PROC: 0SGG0KZ Fusion of Left Ankle Joint with Nonautologous Tissue Substitute, Open Approach (ICD-10-PCS; 2019-01-09)
PROC: 0SGG04Z Fusion of Left Ankle Joint with Internal Fixation Device, Open Approach (ICD-10-PCS; principal; 2019-01-09 09:00)
DX: M19.172 Post-traumatic osteoarthritis, left ankle and foot (principal); E78.5 Hyperlipidemia, unspecified; S82.892S Other fracture of left lower leg, sequela; I35.2 Nonrheumatic aortic (valve) stenosis with insufficiency; K21.9 Gastro-esophageal reflux disease without esophagitis; F51.04 Psychophysiologic insomnia; F41.8 Other specified anxiety disorders; Z79.899 Other long term (current) drug therapy; Z98.890 Other specified postprocedural states; Z86.19 Personal history of other infectious and parasitic diseases; Z87.19 Personal history of other diseases of the digestive system; Z94.5 Skin transplant status; Z80.42 Family history of malignant neoplasm of prostate; Z82.5 Family history of asthma and other chronic lower respiratory diseases; Z80.3 Family history of malignant neoplasm of breast
CPT/HCPCS: 64445; 76942; 82306; 87070; 87075; 87102; 87205

== ENCOUNTER → 2020-04-30 | Outpatient (CLI) | payer MEDICAID ==
--- NOTE | 2020-04-30 11:43 | ECHOF ---
Referral Reason:R01.1 Systolic [place] MEASUREMENTS -------- HEIGHT: 180.3 cm WEIGHT: 73.0 kg BP: IVSd: 1.4 cm (0.6 - 1.1) LVIDd: 4.1 cm (3.9 - 5.3) LVPWd: 1.4 cm (0.6 - 1.1) IVSs: 1.9 cm LVIDs: 2.1 cm LVPWs: 2.3 cm LAESV Index (A-L): 24.75 ml/m Ao Diam: 3.9 cm (2.0 - 3.7) AV Cusp: 1.8 cm (1.5 - 2.6) LA Diam: 2.9 cm (2.7 - 3.8) MV EXCURSION: 12.842 mm (> 18.000) MV EF SLOPE: 62 mm/s (70 - 150) EPSS: 1.9 cm MV E Rodney: 0.65 m/s MV DecT: 280 ms MV A Rodney: 0.65 m/s MV E/A Ratio: 1.01 AV maxP.23 mmHg AV meanP.03 mmHg AR PHT: 987 ms RAP: 5.00 mmHg RVSP: 16.42 mmHg FINDINGS -------- This was a technically good study. The left ventricular size is normal. There is moderate concentric left ventricular hypertrophy. O verall left ventricular systolic function is low-normal with, an EF between 50 - 55 %. The diastoli c filling pattern is normal for the age of the patient 13.24. The right ventricle is normal in size. The left atrial size is normal. Normal LA size by volume 22+/-6 ml/m2. The right atrial size is normal. Aortic valve is mildly thickened. Trace to mild aortic regurgitation. There is mild aortic stenosi s present. Peak/mean gradient across the Aortic Valve is 19.23mmHg / 10.03mmHg. AOV is possible B icuspid. The mitral valve is normal. There is trace mitral regurgitation. The tricuspid valve appears structurally normal. Mild tricuspid regurgitation present. Right vent ricular systolic pressure is normal at < 35 mmHg. There is no pulmonic regurgitation present. The aortic root is dilated measuring 3.9 cm. Normal inferior vena cava with normal inspiratory collapse consistent with estimated right atrial pre ssure of 5 mmHg. There is no pericardial effusion. CONCLUSIONS -------- 1. The left ventricular size is normal. 2. There is moderate concentric left ventricular hypertrophy. 3. The diastolic filling pattern is normal for the age of the patient 13.24 4. Aortic valve is mildly thickened. 5. Trace to mild aortic regurgitation. 6. There is mild aortic stenosis present. 7. Peak/mean gradient across the Aortic Valve is 19.23mmHg / 10.03mmHg. 8. AOV is possible Bicuspid. 9. There is trace mitral regurgitation. 10. Mild tricuspid regurgitation present. 11. The aortic root is dilated measuring 3.9 cm. 12. There is no pericardial effusion. TEACHER INSTRUMENTAL: Mary Bernstein RDCS
== END | disposition home or self-care (01) ==
LOC: RADECHMAIN 10:16
PROVIDERS: ATTEND Family Medicine
DX: I08.3 Combined rheumatic disorders of mitral, aortic and tricuspid valves (principal)
CPT/HCPCS: 93306

== ENCOUNTER → 2023-01-10 | Outpatient (CLI) | payer OTHER ==
--- NOTE | 2023-01-10 11:14 | MR ---
EXAMINATION TYPE: MR lumbar spine wo con DATE OF EXAM: 01/10/2023 COMPARISON: NONE HISTORY: Low back pain TECHNIQUE: T1 and T2 axial and sagittal images of the lumbar spine are submitted. FINDINGS: There is no abnormal signal seen within the visualized spinal cord or paraspinal soft tissu es. At L1-2 there is moderate degenerative disc disease. No disc herniation or canal stenosis. No foramin al encroachment. At L2-3 there is moderate degenerative disc disease and there is a tiny left paracentral disc protrus ion. Retrolisthesis of L2 relative to L3. At L3-4 there is degenerative disc disease. Discogenic marrow changes. Facet arthropathy and ligament um flavum hypertrophy but no disc herniation or canal stenosis. At L4-5 there is degenerative disc disease and cannot exclude a vertebral body hemangioma L5. Facet a rthropathy and ligamentum flavum central disc bulge. 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 There is moderate degenerative disc disease. Th ere is tiny annular tear with mild broad-based central disc bulging. Mild bilateral foraminal encroac hment. IMPRESSION: 1. Multilevel [id number] degenerative disc disease. Disc bulging L4-5 results in mild canal nancy nosis. 2. Disc bulging L5-S1 with no canal stenosis. 3. Tiny left paracentral disc protrusion at L2-L3. 4. Multilevel facet arthropathy.
== END | disposition home or self-care (01) ==
LOC: RADMRIMAIN 10:01
PROVIDERS: ATTEND Orthopaedic Surgery Orthopaedic Surgery of the Spine
DX: M43.16 Spondylolisthesis, lumbar region (principal); M41.86 Other forms of scoliosis, lumbar region; M47.816 Spondylosis without myelopathy or radiculopathy, lumbar region; M51.36 Other intervertebral disc degeneration, lumbar region; M48.061 Spinal stenosis, lumbar region without neurogenic claudication; M51.26 Other intervertebral disc displacement, lumbar region; M51.27 Other intervertebral disc displacement, lumbosacral region; M62.830 Muscle spasm of back
CPT/HCPCS: 72148